=== PATIENT | male | born 1995 | race African-American/Black ===

== ENCOUNTER 2019-06-11 21:54 | Emergency (ER) | payer MEDICAID ==
[2019-06-11 22:02] VITALS: BP 140/73
--- NOTE | 2019-06-11 22:33 | ED Physician Documentation ---
PD HPI CHEST PAIN - Stated complaint Stated Complaint: PACE MAKER VIBRATING - Chief complaint Chief Complaint: Cardiac - History obtained from History obtained from: Patient - History of Present Illness Timing - onset: Other (4-year-old gentleman who at the age of 18 had with sounds like a cardiac arrest and had an AICD placed. Subsequently he was lost to follow-up because of a lapse in insurance and he has not seen a fashion patternmaker in many years. The pacemaker/AICD really has not been bothering him never shocked him. He has good exercise tolerance and has not had any trouble exercising or with chest pain or trouble breathing. Tonight for about 5 minutes he felt like his AICD was vibrating. That sensation is now gone.) Review of Systems Cardiac: denies: Chest pain / pressure, Palpitations, Pedal edema, Calf pain Respiratory: denies: Dyspnea, Cough GI: denies: Abdominal Pain PD PAST MEDICAL HISTORY - Present Medications Home Medications: Ambulatory Orders Medication Instructions Recorded Confirmed No Known Home Medications 06/11/19 06/11/19 - Allergies Allergies/Adverse Reactions: Allergies Allergy/AdvReac Type Severity Reaction Status Date / Time No Known Drug Allergies Allergy Verified 06/11/19 22:02 PD ED PE NORMAL - Vitals Vital signs reviewed: Yes - General General: Alert and oriented X 3, No acute distress - Neck Neck: Supple, no meningeal sign, No bony TTP - Cardiac Cardiac: RRR, No murmur - Respiratory Respiratory: No respiratory distress, Clear bilaterally - Neuro Neuro: Alert and oriented X 3, Normal speech Results - Vitals Vitals: Vital Signs - 24 hr 06/11/19 21:55 Temperature 36.5 C Heart Rate 63 Respiratory 16 Rate Blood Pressure 140/73 H O2 Saturation 100 Oxygen O2 Source Room air - EKG (time done) 2217 Rate: Rate (enter#) (71) Rhythm: NSR [place]: Normal Intervals: Other (IVCD) QRS: Normal Ischemia: Non specific changes Computer interpretation: Agree with computer PD MEDICAL DECISION MAKING - ED course ED course: 24-year-old gentleman with [place] AICD in place with 5-minute episode of it vibrating tonight. Review of online literature suggest that this could be due to low battery or lead issues. Since he does not currently seem to actively need the AICD and it has never shocked him, I advised close follow-up with cardiology but I do not think further work-up needs to be done tonight. Departure - Departure Disposition: 01 Home, Self Care Clinical Impression: AICD problem Condition: Good Record reviewed to determine appropriate education?: Yes Comments: As discussed, as long as it is not shocking you or you are not having chest pain, trouble breathing, or passing out episodes, I think it is fine to wait to see the fashion patternmaker to discuss this issue, however you do need to follow-up with a fashion patternmaker as soon as possible. The phone number for the [facility] cardiology department is [phone].
== END 2019-06-11 22:40 | disposition home or self-care (01) ==
LOC: ED 21:54
DX: T82.9XXA Unspecified complication of cardiac and vascular prosthetic device, implant and graft, initial encounter (principal); Y84.8 Other medical procedures as the cause of abnormal reaction of the patient, or of later complication, without mention of misadventure at the time of the procedure; Z86.74 Personal history of sudden cardiac arrest
CPT/HCPCS: 93005; 99282; 99284

== ENCOUNTER 2020-07-18 09:02 | Emergency (ER) | payer MEDICAID ==
[2020-07-18 09:09] VITALS: BP 144/81
[2020-07-18] MEDS ORDERED: LIDOCAINE 1% 2 ML VIAL MC ONE ×2 (09:27→09:29)
[2020-07-18] MEDS ORDERED: cefTRIAXone 1 GM VIAL IM STA (09:27)
[2020-07-18] MEDS ORDERED: cefTRIAXone 250 MG VIAL IM STA (09:29)
[2020-07-18] MEDS ORDERED: metroNIDAZOLE 250 MG TABLET PO STA (09:29)
[2020-07-18] MEDS ORDERED: AZITHROMYCIN 250 MG TABLET PO STA (09:30)
[2020-07-18 09:33] LABS: BILIRUBIN,URINE NEGATIVE (NEGATIVE); GLUCOSE, URINE (UA) NEGATIVE (NEGATIVE); KETONES,URINE (UA) NEGATIVE (NEGATIVE); LEUKOCYTE ESTERASE, URINE TRACE (NEGATIVE); NITRITE,URINE NEGATIVE (NEGATIVE); OCCULT BLOOD,URINE TRACE-INTA (NEGATIVE); PROTEIN,URINE NEGATIVE (NEGATIVE); UROBILINOGEN,URINE 0.2 (NORMAL) E.U./dL (NORMAL)
[2020-07-18 09:35] LABS: CLARITY,URINE HAZY (CLEAR)
--- NOTE | 2020-07-18 09:36 | ED Physician Documentation ---
History of Present Illness - Stated complaint Stated Complaint: MALE - Chief complaint Chief Complaint: General - History obtained from History obtained from: Patient - Additonal information Additional information: 25-year-old man, with history of multiple STIs in the past presents with penile discharge over the past 6 days after having a new sexual encounter that was unprotected a week ago. Denies fevers, abdominal pain, testicular pain, back pain. Denies urinary symptoms. Review of Systems Ten Systems: 10 systems reviewed and negative Constitutional: denies: Fever, Chills Throat: denies: Oral lesions / sores GI: denies: Abdominal Pain, Nausea, Vomiting : reports: Other (+discharge). denies: Dysuria, Frequency, Testicular pain Skin: denies: Rash, Lesions Musculoskeletal: denies: Back pain PD PAST MEDICAL HISTORY - Past Medical History Cardiovascular: [place] Respiratory: None Endocrine/Autoimmune: None GI: None : None Psych: None Musculoskeletal: None Derm: None - Past Surgical History Past Surgical History: Yes Cardiovascular: AICD - Present Medications Home Medications: Ambulatory Orders Medication Instructions Recorded Confirmed No Known Home Medications 06/11/19 07/18/20 - Allergies Allergies/Adverse Reactions: Allergies Allergy/AdvReac Type Severity Reaction Status Date / Time No Known Drug Allergies Allergy Verified 07/18/20 09:05 - Social History Does the pt smoke?: No Smoking Status: Never smoker Does the pt drink ETOH?: Yes Does the pt have substance abuse?: No - Immunizations Immunizations are current?: No - POLST Patient has POLST: No PD ED PE NORMAL - Vitals Vital signs reviewed: Yes - General General: Alert and oriented X 3, No acute distress, Well developed/nourished - HEENT HEENT: Atraumatic, PERRL, EOMI - Abdomen Abdomen: Non tender, Non distended - Male Male : Dispensing Optician Apprentice present (RN Darin), Other (no lesions, lice. +whitish penile discharge.) - Rectal Rectal: Pt declined - Back Back: No CVA TTP - Derm Derm: Normal color, Warm and dry - Extremities Extremities: No deformity - Neuro Neuro: Alert and oriented X 3 - Psych Psych: Normal mood, Normal affect Results - Vitals Vitals: Vital Signs - 24 hr 07/18/20 09:05 Temperature 36.9 C Heart Rate 72 Respiratory 18 Rate Blood Pressure 144/81 H O2 Saturation 100 Oxygen O2 Source Room air PD MEDICAL DECISION MAKING - ED course ED course: 25-year-old man presents requesting antibiotics for STI. Declined HIV testing. Urine sample sent for GC chlamydia trichomonas and UTI. Return precautions given. Patient will follow up in 3 weeks for repeat STI testing. Departure - Departure Disposition: 01 Home, Self Care Clinical Impression: STI (sexually transmitted infection), Penile discharge Condition: Good Instructions: STDs Comments: You were seen in the emergency department for penile discharge. We treated you with antibiotics for possible gonorrhea, chlamydia, trichomonas infection. You should consider getting retested in 3 weeks to make sure that you are clear of infection. You should also call your sexual partner and let them know that you were treated for sexually transmitted infection. Practice safe sex and use condoms with new partners. [facility] walk in clinic [address] [place] [address] ~6.7 nm
[2020-07-18 09:54] LABS: BACTERIA,URINE Rare /HPF (None Seen); RBC,URINE 0-5 /HPF (0-5); SQUAMOUS EPITHELIAL CELL,UR NONE SEEN (<= Few); WBC CLUMPS,URINE PRESENT
== END 2020-07-18 09:51 | disposition home or self-care (01) ==
LOC: ED 09:02
DX: A64 Unspecified sexually transmitted disease (principal)
CPT/HCPCS: 81001; 87086; 87491; 87591; 96372; 99283; 99284; A9270; 87661